=== PATIENT | female | born 1970 | race Caucasian/White ===

== ENCOUNTER 2016-10-19 13:40 | Emergency (ER) | payer OTHER ==
[2016-10-19 14:09] LABS: HEMOGLOBIN 13.9 gm/dl (12.3-15.3); RED BLOOD COUNT 4.75 M/UL (4.00-5.10); WHITE BLOOD COUNT 7.6 K/UL (4.5-11.0)
[2016-10-19 14:28] LABS: BUN/CREATININE RATIO 16 (0-10)
== END 2016-10-19 16:45 | disposition left against medical advice (07) ==
LOC: ER1 13:40
PROVIDERS: Physician Assistant
DX: R07.89 Other chest pain (principal); R11.0 Nausea; R06.02 Shortness of breath; R00.2 Palpitations; R53.1 Weakness
CPT/HCPCS: 36415; 71010; 80053; 82150; 82550; 82553; 83690; 83874; 84484; 85025; 85379; 93005; 96374; 99285; J2405; Q0177

== ENCOUNTER → 2016-10-24 | Outpatient (CLI) | payer OTHER | LOC: LAB 08:00 | DX: R07.9 Chest pain, unspecified (principal); K58.9 Irritable bowel syndrome, unspecified | CPT/HCPCS: 36415; 80061 ==

== ENCOUNTER 2016-11-14 12:26 | Emergency (ER) | payer OTHER ==
[2016-11-14 14:55] LABS: BUN/CREATININE RATIO 17 (0-10)
[2016-11-14 15:16] LABS: HEMOGLOBIN 13.7 gm/dl (12.3-15.3); RED BLOOD COUNT 4.63 M/UL (4.00-5.10); WHITE BLOOD COUNT 7.2 K/UL (4.5-11.0)
== END 2016-11-14 16:48 | disposition home or self-care (01) ==
LOC: ER1 12:26
PROVIDERS: Emergency Medicine
DX: R11.0 Nausea (principal); R07.81 Pleurodynia; R10.9 Unspecified abdominal pain; T50.905A Adverse effect of unspecified drugs, medicaments and biological substances, initial encounter; Z90.49 Acquired absence of other specified parts of digestive tract
CPT/HCPCS: 36415; 80053; 82150; 83690; 85025; 85610; 85730; 96374; 99284; J2405

== ENCOUNTER → 2020-08-18 | Outpatient (CLI) | payer OTHER ==
[~2020-08-18] MED LIST: ADULT GLYCERIN1 EACH PR; ASPIRIN CHEWABL81 MG PO; CITROMA296 ML PO; ECOTRIN81 MG PO; KEFLEX CAP 500500 MG PO; NITROSTAT0.4 MG SL
== END ==
LOC: RAD 15:57
DX: R05 Cough (principal); J84.9 Interstitial pulmonary disease, unspecified
CPT/HCPCS: 71046

== ENCOUNTER 2020-08-26 10:28 | Emergency (ER) | payer OTHER ==
[~2020-08-26 10:28] MED LIST changes: -ASPIRIN CHEWABL81 MG PO; -NITROSTAT0.4 MG SL
[2020-08-26 11:31] LABS: HEMOGLOBIN 14.3 gm/dl (12.3-15.3); RED BLOOD COUNT 5.05 M/UL (4.00-5.10); WHITE BLOOD COUNT 14.3 K/UL (4.5-11.0)
[2020-08-26 11:58] LABS: BUN/CREATININE RATIO 15 (0-10)
[2020-08-26] MEDS ORDERED: NITROSTAT0.4 MG SL (13:18)
[2020-08-26] MEDS ORDERED: ASPIRIN CHEWABL81 MG PO (13:18)
== END 2020-08-26 13:30 | disposition left against medical advice (07) ==
LOC: ER1 10:28 → CDU 12:59
PROVIDERS: Emergency Medicine
DX: R07.9 Chest pain, unspecified (principal); I10 Essential (primary) hypertension; R06.02 Shortness of breath; R11.0 Nausea; Z20.822 Contact with and (suspected) exposure to COVID-19
CPT/HCPCS: 71045; 80053; 82550; 82553; 83874; 84484; 85025; 85379; 93005; 96374; 99285; J2405; U0002

== ENCOUNTER → 2021-01-19 | Outpatient (CLI) | payer OTHER ==
[~2021-01-19] MED LIST changes: +ASPIRIN CHEWABL81 MG PO; +NITROSTAT0.4 MG SL
== END ==
LOC: KOH-I 13:05
DX: M79.674 Pain in right toe(s) (principal); M79.675 Pain in left toe(s)
CPT/HCPCS: 73630

== ENCOUNTER → 2021-04-04 | Outpatient (CLI) | payer BC, OTHER | LOC: MAMO 07:40 | DX: Z12.31 Encounter for screening mammogram for malignant neoplasm of breast (principal) | CPT/HCPCS: 77063; 77067 ==

== ENCOUNTER 2021-10-01 09:31 | Emergency (ER) | payer OTHER ==
[2021-10-01 10:44] LABS: RED BLOOD COUNT 4.96 M/UL (4.00-5.10); WHITE BLOOD COUNT 10.1 K/UL (4.5-11.0)
[2021-10-01 11:12] LABS: BUN/CREATININE RATIO 17 (0-10)
[2021-10-02] MEDS ORDERED: NORFLEX 100 MG100 MG PO (08:03)
[2021-10-02] MEDS ORDERED: BACTRIM DS TAB1 EACH PO (08:03)
== END 2021-10-01 12:50 | disposition home or self-care (01) ==
LOC: ER1 09:31
PROVIDERS: Physician Assistant
DX: M54.6 Pain in thoracic spine (principal); R10.10 Upper abdominal pain, unspecified
CPT/HCPCS: 71045; 72072; 80053; 81001; 82150; 82550; 82553; 83690; 83874; 84484; 84703; 85025; 87086; 93005; 96374; 99284; J1885; Q9967

== ENCOUNTER 2021-10-02 04:27 | Emergency (ER) | payer OTHER ==
[2021-10-02 05:23] LABS: HEMOGLOBIN 12.5 gm/dl (12.3-15.3); WHITE BLOOD COUNT 7.9 K/UL (4.5-11.0)
[2021-10-02 05:25] LABS: RED BLOOD COUNT 4.44 M/UL (4.00-5.10)
[2021-10-02 05:48] LABS: BUN/CREATININE RATIO 21 (0-10)
[2021-10-02] MEDS ORDERED: BACTRIM DS TAB1 EACH PO (08:03)
[2021-10-02] MEDS ORDERED: NORFLEX 100 MG100 MG PO (08:03)
== END 2021-10-02 08:15 | disposition home or self-care (01) ==
LOC: ER1 04:27
PROVIDERS: Physician Assistant
DX: N39.0 Urinary tract infection, site not specified (principal); M54.6 Pain in thoracic spine; I10 Essential (primary) hypertension
CPT/HCPCS: 80053; 81001; 82550; 82553; 83690; 83874; 84484; 84703; 85025; 93005; 96374; 99284; C9113; Q9967

== ENCOUNTER → 2022-02-15 | Outpatient (CLI) | payer OTHER ==
[~2022-02-15] MED LIST changes: +BACTRIM DS TAB1 EACH PO; +BENTYL 20MG TAB20 MG PO; +NORFLEX 100 MG100 MG PO; +ZOFRAN ODT 4 MG4 MG GT
[2022-02-15 11:03] LABS: ADENOVIRUS F 40/41 Not Detected (Negative); ASTROVIRUS Not Detected (Negative); CAMPYLOBACTER Not Detected (Negative); CRYPTOSPORIDIUM Not Detected (Negative); E.COLI 0157 Not Detected (Negative); ENTAMOEBA HISTOLYTICA Not Detected (Negative); ENTEROAGGREGATIVE E.COLI (EAEC Not Detected (Negative); ENTEROPATHOGENIC E.COLI (EPEC) Not Detected (Negative); ENTEROTOXIGENIC E.COLI (ETEC) Not Detected (Negative); GIARDIA LAMBLIA Not Detected (Negative); NOROVIRUS GI/GII Not Detected (Negative); PLESIOMONAS SHIGELLOIDES Not Detected (Negative); ROTOVIRUS A Not Detected (Negative); SALMONELLA Not Detected (Negative); SAPOVIRUS Not Detected (Negative); SHIG/ENTEROINVAS.ECOLI (EIEC) Not Detected (Negative); SHIGA-LIK TOX.PRO.E.COLI (STEC Not Detected (Negative); VIBRIO Not Detected (Negative); VIBRIO CHOLERAE Not Detected (Negative); YERSINIA ENTEROCOLITICA Not Detected (Negative)
[2022-02-16 08:20] LABS: CLOSTRIDIUM DIFFICILE TOX A/B Not Detected (Negative)
== END ==
LOC: LAB 10:31
PROVIDERS: Nurse Practitioner
DX: R19.7 Diarrhea, unspecified (principal)
CPT/HCPCS: 36415; 87507

== ENCOUNTER 2022-02-17 08:20 | Emergency (ER) | payer OTHER ==
[~2022-02-17 08:20] MED LIST changes: -BENTYL 20MG TAB20 MG PO; -ZOFRAN ODT 4 MG4 MG GT
[2022-02-17 09:21] LABS: HEMOGLOBIN 13.8 gm/dl (12.3-15.3); RED BLOOD COUNT 4.94 M/UL (4.00-5.10); WHITE BLOOD COUNT 8.4 K/UL (4.5-11.0)
[2022-02-17 10:43] LABS: BUN/CREATININE RATIO 15 (0-10)
[2022-02-17] MEDS ORDERED: BENTYL 20MG TAB20 MG PO (11:12)
[2022-02-17] MEDS ORDERED: ZOFRAN ODT 4 MG4 MG GT (11:12)
== END 2022-02-17 11:29 | disposition home or self-care (01) ==
LOC: ER1 08:20
PROVIDERS: Physician Assistant
DX: K58.9 Irritable bowel syndrome, unspecified (principal); R10.819 Abdominal tenderness, unspecified site; E78.5 Hyperlipidemia, unspecified; I10 Essential (primary) hypertension; Z90.89 Acquired absence of other organs; Z90.49 Acquired absence of other specified parts of digestive tract
CPT/HCPCS: 80053; 81001; 83690; 83735; 84703; 85025; 85652; 86140; 87086; 96374; 99284; J2405